=== PATIENT | female | born 1970 | race Caucasian/White ===

== ENCOUNTER 2020-01-19 15:20 | Outpatient (CLI) | payer SELFPAY ==
--- NOTE | ~2020-01-19 | MM_ITS ---
EXAMINATION: MM screening [facility] BI w maia HISTORY: Screening mammogram TECHNIQUE: Craniocaudal and mediolateral oblique 3-D tomosynthesis images were obtained and synthetic 2-D images were generated. CAD analysis was submitted and interpreted. COMPARISON: 02/10/2018, 12/13/2014 BREAST PARENCHYMAL COMPOSITION: The breasts are heterogeneously dense, which may obscure small masses . FINDINGS: RIGHT BREAST: There is no evidence of suspicious mass, calcification, or architectural distortion to suggest malignancy. There has been no significant interval change. LEFT BREAST: There are grouped indeterminate calcifications in the posterior third of the outer breas t best appreciated 8 cm from the nipple on the mediolateral oblique view. IMPRESSION: 1. Indeterminate left breast calcifications. 2. Magnification views are recommended. BI-RADS Category 0: Incomplete: Needs additional imaging evaluation. Reviewed, dictated and finalized at location A. TESTER
== END 2020-01-19 15:21 | disposition home or self-care (01) ==
PROVIDERS: PCP Chiropractor; Visit Provider Obstetrics & Gynecology
DX: Z12.31 Encounter for screening mammogram for malignant neoplasm of breast (principal); R92.8 Other abnormal and inconclusive findings on diagnostic imaging of breast
CPT/HCPCS: 77063; 77067

== ENCOUNTER 2020-06-25 13:04 | Outpatient (CLI) | payer SELFPAY ==
--- NOTE | ~2020-06-25 | MM_ITS ---
EXAMINATION: MM diagnostic dav LT w maia HISTORY: Lump left breast calcifications TECHNIQUE: Additional 3-D tomosynthesis images of the left breast were performed and synthetic 2-D im ages were generated. CAD analysis was submitted and interpreted. COMPARISON: Comparison to multiple prior studies sequentially, with oldest reviewed study dated 07/22. BREAST PARENCHYMAL COMPOSITION: The breasts are heterogenously dense, which may obscure small masses. FINDINGS: Punctate calcifications scattered throughout the left breast have a benign monomorphic appe arance. No suspicious cluster of calcifications are identified in the left breast. No new masses or a rchitectural distortion. IMPRESSION: 1. No mammographic evidence for malignancy in the left breast. 2. Routine yearly screening mammogram and regular clinical breast examination are recommended. BI-RADS Category 2: Benign finding(s). Reviewed, dictated and finalized at location A. IMPRESSION: 1. No mammographic evidence for malignancy in the left breast. 2. Routine yearly screening mammogram and regular clinical breast examination a re recommended. BI-RADS Category 2: Benign finding(s).
== END 2020-06-25 13:05 | disposition home or self-care (01) ==
PROVIDERS: PCP Chiropractor; Visit Provider Obstetrics & Gynecology
DX: R92.8 Other abnormal and inconclusive findings on diagnostic imaging of breast (principal)
CPT/HCPCS: 77061; 77065; G0279

== ENCOUNTER 2021-02-26 12:35 | Outpatient (CLI) | payer BC, SELFPAY ==
--- NOTE | ~2021-02-26 | MM_ITS ---
EXAMINATION: MM screening [facility] BI w maia HISTORY: Screening TECHNIQUE: Craniocaudal and mediolateral oblique 3-D tomosynthesis images were obtained and synthetic 2-D images were generated. CAD analysis was submitted and interpreted. COMPARISON: Comparison to multiple prior studies sequentially, with oldest reviewed study dated 01/08. BREAST PARENCHYMAL COMPOSITION: The breasts are heterogenously dense, which may obscure small masses. FINDINGS: There is no evidence of suspicious mass, calcification, or architectural distortion to sugg est malignancy in either breast. There has been no suspicious interval change. IMPRESSION: 1. No mammographic evidence of malignancy. 2. Recommend routine screening mammography in one year. BI-RADS Category 1: Negative Reviewed, dictated and finalized at location A. [employer]PECTING [employer]
== END 2021-02-26 12:36 | disposition home or self-care (01) ==
LOC: ANHIMG 12:38
PROVIDERS: PCP Family Medicine; Visit Provider Obstetrics & Gynecology
DX: Z12.31 Encounter for screening mammogram for malignant neoplasm of breast (principal)
CPT/HCPCS: 77063; 77067

== ENCOUNTER 2022-04-22 13:50 | Outpatient (CLI) | payer BC, SELFPAY ==
--- NOTE | ~2022-04-22 | MM_ITS ---
EXAMINATION: MM screening [facility] BI w maia HISTORY: Screening mammogram TECHNIQUE: Craniocaudal and mediolateral oblique 3-D tomosynthesis images were obtained and synthetic 2-D images were generated. CAD analysis was submitted and interpreted. COMPARISON: 02/26/2021, 06/25/2020, 02/18/2019 bilateral screening mammogram examinations BREAST PARENCHYMAL COMPOSITION: The breasts are heterogeneously dense, which may obscure small masses . FINDINGS: Biopsy marker on the right; history of prior benign right breast biopsy. There is no eviden ce of suspicious mass, calcification, or architectural distortion to suggest malignancy in either martinez ast. There has been no suspicious interval change. IMPRESSION: 1. No mammographic evidence of malignancy. 2. Recommend routine screening mammography in one year. BI-RADS Category 1: Negative Reviewed, dictated and finalized at location A.
== END 2022-04-22 13:51 | disposition home or self-care (01) ==
LOC: ANHIMG 13:52
PROVIDERS: PCP Family Medicine; Visit Provider Obstetrics & Gynecology
DX: Z12.31 Encounter for screening mammogram for malignant neoplasm of breast (principal)
CPT/HCPCS: 77063; 77067

== ENCOUNTER 2022-10-21 18:52 | Emergency (ER) | payer BC, SELFPAY ==
--- NOTE | ~2022-10-21 | CT_ITS ---
EXAMINATION: CT abdomen pelvis w con INDICATION: Suprapubic and left lower quadrant pain TECHNIQUE: Computed tomographic images of the abdomen and pelvis were obtained after the administrati on of 100 cc of Omnipaque 350 intravenous contrast. The dose-length product (DLP) was 983.85 mGy-cm. Automated exposure control and iterative reconstruction technique were employed. COMPARISON: None available FINDINGS: Minimal dependent atelectasis is present in the lung bases. The heart size is normal. There is a small sliding hiatal hernia. The liver, spleen, pancreas, gallbladder, and adrenal glands are n ormal. The kidneys are unremarkable. There is wall thickening of the sigmoid colon with edematous str anding of the perisigmoid fat. No definite perforation or abscess are identified. The appendix is nor mal. There is a midline ventral hernia 3 cm above the umbilicus containing fat. No pathologically enl arged abdominal or pelvic lymph nodes are identified. No evidence of bowel obstruction. There is mild lumbar spondylosis. IMPRESSION: 1. Uncomplicated acute sigmoid diverticulitis. Reviewed, dictated and finalized at location F.
[2022-10-21 18:54] VITALS: BP 149/89; PULSE 91; RESP 20; TEMP 36.2; O2SAT 100
--- NOTE | 2022-10-21 20:17 | ED.ABDPAIN ---
HPI - Abdominal Pain General Chief Complaint: Abdominal Pain Stated Complaint: pelvic cramp pain Time Seen by Provider: 10/21/22 20:02 History of Present Illness HPI narrative: 52-year-old female with a history of uterine ablation 19 years ago reports for evaluation for left lower quadrant and suprapubic pain since yesterday. Patient states the pain feels like very bad period cramping. She states this started yesterday and was more mild but has progressively worsened, and caused her to leave work early today. States her last bowel movement today was normal. She denies dysuria, hematuria, back pain, fever, body aches or chills, vaginal bleeding, vaginal discharge, concern for STDs. She does report history of diverticulosis and colitis. Related Data Home Medications Medication Instructions Recorded Confirmed multivitamin (Daily Multi-Vitamin 1 tablet PO DAILY 12/13/18 03/30/22 tablet) Allergies Allergy/AdvReac Type Severity Reaction Status Date / Time No Known Allergies Allergy Mild Verified 10/21/22 18:54 Review of Systems Review of Systems: CONSTITUTIONAL: Denies fever, chills EYES: Denies visual changes, redness, or discharge. ENT: Denies rhinorrhea, congestion, sore throat, or otalgia. CARDIOVASCULAR: Denies chest pain, palpitations, or edema. RESPIRATORY: Denies cough or dyspnea. GASTROINTESTINAL: See HPI GENITOURINARY: Denies dysuria or hematuria. SKIN: Denies rash or itching. MUSCULOSKELETAL: Denies back pain, joint pain, or myalgia. NEUROLOGIC: Denies headache, numbness, dizziness, or weakness. PSYCHIATRIC: Denies anxiety or depression. [facility] Past Medical History Medical History Anxiety Obesity Rectal bleed Surgical History Surgical History History of endometrial ablation Hx of tonsillectomy Family History Family History Grandparent Hypertension Acute myocardial infarction Diabetes mellitus Daughter Alcoholism Depression Father Alcoholism Mother Hypertension Sibling Depression Social History Social History Smoking status: Never smoker Alcohol intake: current Drinks per week: 3 Alcohol use details: Glasses of Wine Substance use: never Substance use type: does not use Lack of Transportation: No Lack of Food: Never True Current Housing: I Have Housing Concerned About Future Housing: No Difficulty Paying Gas/Electric Bills: No Difficulty Paying for Meds: No Currently Unemployed: No Education: High School Diploma/GED Difficulty w/ Childcare or Family Care: No Exam Narrative: GENERAL: Well-appearing, in no acute distress. Patient resting comfortably in exam bed. He is pleasant and conversational. HEAD: Normocephalic EYES: PERRLA ENT: Nares clear. Mucous membranes moist. Oropharynx without tonsillar hypertrophy exudate or other lesions. NECK: Supple. CHEST: No respiratory distress. Clear to auscultation, no adventitious breath sounds. HEART: Regular rate and rhythm. No murmur heard. Normal peripheral pulses. ABDOMEN: Normal active bowel sounds. Abdomen soft with tenderness and guarding in the suprapubic region and left lower quadrant. No overlying skin changes. No CVA tenderness. No rebound or rigidity. EXTREMITIES: Normal range of motion. No edema. SKIN: Warm, dry, no rash. NEURO: No focal deficits. Alert and oriented x3. PSYCH: Normal mood and affect. Course Vital Signs Vital signs: Vital Signs Temperature 97.2 F L 10/21/22 18:54 Pulse Rate 91 10/21/22 18:54 Respiratory Rate 20 10/21/22 18:54 Blood Pressure 149/89 H 10/21/22 18:54 Pulse Oximetry 100 10/21/22 18:54 Oxygen Delivery Room Air 10/21/22 18:54 Temperature 97.2 F L 10/21/22 18:54 Pulse Rate 66 10/21/22 2
[2022-10-21] MEDS: KETOROLAC 30 MG/ML VIAL (*BKC) IV PUSH (20:28)
[2022-10-21] MEDS: SODIUM CHLORIDE 0.9% IV 1,000 ML 999 ML IV CONT (20:29)
[2022-10-21 20:31] LABS: Basophils Percent Auto 0.2 % (0.2-1.2); Eosinophils Absolute Auto 0.2 K/mm3 (0-0.3); Eosinophils Percent Auto 2.2 % (0-4.4); Hematocrit 42.1 % (37.0-47.0); Hemoglobin 14.1 g/dL (12.0-15.0); Immature Granulocyte Absolute 0.04 K/mm3 (0.00-0.031); Immature Granulocyte Percent A 0.4 % (0-0.5); Lymphocytes Absolute Auto 1.56 K/mm3 (0.9-3.2); Lymphocytes Percent Auto 17.2 % (18.3-44.2); Mean Corpuscular HGB Conc 33.5 g/dl (32-36); Mean Corpuscular Volume 83.5 fl (80-100); Mean Platelet Volume 10.3 fl (7.4-10.4); Monocytes Absolute Auto 0.8 K/mm3 (0.1-0.6); Monocytes Percent Auto 8.8 % (2.6-8.5); Neutrophils Absolute Auto 6.4 K/mm3 (1.3-6.7); Neutrophils Percent Auto 71.2 % (45.5-73.1); Platelet Count Result 176 k/mm3 (150-375); Red Blood Count 5.04 M/mm3 (4.2-5.4); White Blood Count 9.1 K/mm3 (4.5-10.0)
[2022-10-21 20:37] LABS: Appearance Urine Clear (Clear); Bacteria Urine None Seen /hpf; Bilirubin Urine Negative (Negative); Blood Urine 1+ (Negative); Color Urine Yellow (Yellow); Glucose Urine UA Negative (Negative); Ketones Urine Negative (Negative); Leukocyte Esterase Ur Negative LEU/UL (Negative); Nitrate Urine Negative (Negative); Non Pathogenic Casts 0-2; Protein Urine Negative (Negative); Specific Grav Ur 1.009 (1.001-1.035); Squamous Epithelial Cell Urine Occasional /hpf (Few); Urobilinogen Urine 0.2 mg/dL (<2.0); WBC Urine 0-5 /hpf
[2022-10-21 20:40] LABS: Alanine Aminotransferase 30 U/L (6-35); Albumin Level 4.8 g/dL (3.5-5.1); Alkaline Phosphatase 84 U/L (38-126); Anion Gap 10 mmol/L (8-16); Aspartate Amino Transferase 27 U/L (14-36); Bilirubin,Total 0.7 mg/dL (0.2-1.3); Blood Urea Nitrogen 19 mg/dL (7-17); Calcium 9.5 mg/dL (8.4-10.2); Carbon Dioxide 27 mmol/L (22-30); Chloride 99 mmol/L (98-107); Estimated CRCL calculation 74 ml/min; Estimated Glomerular Filt Rate > 60; Glucose 101 mg/dL (65-110); Lipase 89 U/L (23-300); Potassium 3.7 mmol/L (3.4-5.0); Sodium 136 mmol/L (137-145)
[2022-10-21 20:42] LABS: Add Urine Microscopic? YES
[2022-10-21] MEDS: METOCLOPRAMIDE HCL INJ 10 MG/2 ML VIAL IV PUSH (21:56)
[2022-10-21] MEDS: AMOXICILLIN/CLAVULANATE K 875-125 MG TAB 1 TABLET PO (21:56)
[2022-10-21 21:57] VITALS: BP 150/83; PULSE 66; RESP 16; O2SAT 98
== END 2022-10-21 22:27 | disposition home or self-care (01) ==
PROVIDERS: Emergency Provider Physician Assistant; PCP Family Medicine
DX: K57.32 Diverticulitis of large intestine without perforation or abscess without bleeding (principal); E66.9 Obesity, unspecified; Z68.30 Body mass index [BMI] 30.0-30.9, adult
CPT/HCPCS: 36415; 74177; 80053; 81001; 83690; 85025; 96361; 96374; 96375; 99284; A9270; J1885; J2765; J7030; Q9967

== ENCOUNTER 2023-10-27 07:57 | Outpatient (CLI) | payer BC, SELFPAY ==
--- NOTE | ~2023-10-27 | MM_ITS ---
EXAMINATION: MM screening dav BI w maia HISTORY: Screening mammogram TECHNIQUE: Craniocaudal and mediolateral oblique 3-D tomosynthesis images were obtained and synthetic 2-D images were generated. CAD analysis was submitted and interpreted. COMPARISON: 04/22/2022, 02/26/2021, 06/25/2020, 01/19/2020 BREAST PARENCHYMAL COMPOSITION:Dense: The breasts are heterogeneously dense, which may obscure small masses. FINDINGS: No suspicious mass, calcification, or architectural distortion are identified in either martinez ast to suggest malignancy. There has been no suspicious interval change. IMPRESSION: No mammographic evidence of malignancy. Recommend routine screening mammography in one year. BI-RADS Category 1: Negative Reviewed, dictated and finalized at location .
== END 2023-10-27 07:58 | disposition home or self-care (01) ==
LOC: ANHIMG 08:00
PROVIDERS: PCP Family Medicine; Visit Provider Obstetrics & Gynecology
DX: Z12.31 Encounter for screening mammogram for malignant neoplasm of breast (principal)
CPT/HCPCS: 77063; 77067